=== PATIENT | male | born 1980 | race African-American/Black ===

== ENCOUNTER → 2017-02-20 | Outpatient (CLI) | payer MEDICAID ==
--- NOTE | 2017-02-20 15:53 | RADIOLOGY REPORT PS360 ---
CTA -CHEST COMPARISON: PA and lateral chest 11/15/2016 HISTORY: Shortness of breath, abnormal echocardiogram, hypertension or TECHNIQUE: Multiple axial scans obtained from the upper chest to the hemidiaphragms after rapid injection of IV contrast. Sagittal coronal reformats were evaluated as well. FINDINGS: Vascular opacification is satisfactory and is no definite CT evidence of pulmonary emboli. The screw mediastinum and ariadne appear normal. The lung corrales are clear of active infiltrate and is no pleural fluid. There is mild generalized cardiomegaly however the is no pulmonary congestion. IMPRESSION: Mild generalized cardio megaly, study negative for PE
== END ==
LOC: RAD 12:57
DX: R06.00 Dyspnea, unspecified (principal); R94.31 Abnormal electrocardiogram [ECG] [EKG]; I10 Essential (primary) hypertension
CPT/HCPCS: Q9967